=== PATIENT | female | born 1995 | race Caucasian/White ===

== ENCOUNTER 2024-01-11 13:07 | Emergency (ER) | payer SELFPAY ==
[~2024-01-11] VITALS: Ht 157.5 cm; Wt 57.0 kg
[2024-01-11 13:20] VITALS: BP 123/79; PULSE 85; RESP 20; TEMP 97.7; O2SAT 98
[2024-01-11] MEDS ORDERED: KETOROLAC 30MG/ML VIAL IM ONE (14:00)
== END 2024-01-11 15:51 | disposition left against medical advice (07) ==
LOC: ER 14:04
DX: R51.9 Headache, unspecified (principal); J45.909 Unspecified asthma, uncomplicated
CPT/HCPCS: 81025; 99283